=== PATIENT | male | born 1950 | race Caucasian/White ===

== ENCOUNTER 2018-01-30 17:12 | Inpatient (IN) | payer MEDICARE, OTHER ==
[~2018-01-30] VITALS: Ht 175.3 cm; Wt 106.3 kg
[2018-01-30] MEDS ORDERED: acetaminophen 1,000mg/100ml IV 100 ML IV ONE (17:30)
[2018-01-30] MEDS ORDERED: normal saline 1000ml 1,000 ML IV ONE ×3 (17:30→20:50)
[2018-01-30] MEDS ORDERED: acetaminophen 650mg rectal suppository RC ONE (17:40)
[2018-01-30] MEDS ORDERED: diltiazem 5mg/ml 5ml inj. IV ONE ×2 (17:50→18:00)
[2018-01-30 18:31] LABS: BASOPHILS % (AUTO) 0.1 % (0-1); EOSINOPHILS # (AUTO) 0.2 X10'3 (0-0.9); EOSINOPHILS % (AUTO) 1.8 % (0-6); HEMOGLOBIN 13.2 g/dl (14.0-17.9); LYMPHOCYTES # (AUTO) 0.4 X10'3 (1.1-4.8); LYMPHOCYTES % (AUTO) 3.8 % (21-51); MEAN CORPUSCULAR HEMOGLOBIN 33.8 PG (27.0-31.0); MEAN CORPUSCULAR HGB CONC 34.7 % (33.0-36.5); MEAN CORPUSCULAR VOLUME 97.4 FL (78-98); MEAN PLATELET VOLUME 9.2 FL (7.4-10.4); MONOCYTES # (AUTO) 1.2 X10'3 (0-0.9); MONOCYTES % (AUTO) 11.1 % (2-12); NEUTROPHILS % (AUTO) 83.2 % (42-75); PLATELET COUNT 178 X10'3 (140-440); RED CELL DISTRIBUTION WIDTH 14.9 % (11.5-14.5); WHITE BLOOD COUNT 10.9 X10'3 (4.5-11.0)
[2018-01-30 18:38] LABS: INR 1.7 INR; PARTIAL THROMBOPLASTIN TIME 54 SECONDS (22-32); PROTHROMBIN TIME 17.4 SECONDS (9.0-12.0)
[2018-01-30 18:45] LABS: ALANINE AMINOTRANSFERASE 25 U/L (12-78); ALBUMIN 2.8 G/DL (3.4-5.0); ALBUMIN/GLOBULIN RATIO 0.7 (1.1-1.5); ALKALINE PHOSPHATASE 53 IU/L (46-116); ANION GAP 12 (8-16); ASPARTATE AMINO TRANSFERASE 97 U/L (10-37); BLOOD UREA NITROGEN 9 MG/DL (7-18); BUN/CREATININE RATIO 7.1 (5.4-32.0); CALCIUM 8.5 MG/DL (8.5-10.1); CHLORIDE 95 MMOL/L (99-107); CREATININE 1.26 MG/DL (0.60-1.10); GLUCOSE 141 MG/DL (70-104); SODIUM 134 MMOL/L (135-145); TOTAL PROTEIN 6.7 G/DL (6.4-8.2); eGFR 57 ML/MIN
[2018-01-30 18:48] LABS: POTASSIUM 2.6 MMOL/L (3.5-5.1)
[2018-01-30] MEDS ORDERED: potassium Cl 20 mEq SR tablet PO STA (18:48)
[2018-01-30] MEDS ORDERED: potassium Cl 10 mEq/100mL bag IV ONE (18:50)
[2018-01-30] MEDS ORDERED: aspirin 325mg tablet PO ONE (18:55)
[2018-01-30] MEDS ORDERED: potassium 10mEq/100ml NS w/LIDOcaine (10mg/bag) IV ONE ×2 (19:00→21:45)
[2018-01-30] MEDS: diltiazem-NS 100mg/100ml 100 ML IV SCH (19:02)
[2018-01-30] MEDS: magnesium 1gm/100ml D5W IVPB 100 ML IV SCH ×2 (19:21→20:47)
[2018-01-30] MEDS ORDERED: CefTRIAXone 2gm/D5W 50ml 50 ML IV ONE (19:25)
[2018-01-30 19:26] LABS: CLARITY,URINE CLOUDY (Clear); COLOR,URINE YELLOW (Yellow); GLUCOSE, URINE NEGATIVE (Neg); KETONES,URINE NEGATIVE (Neg); LEUKOCYTE ESTERASE ,URINE TRACE (Neg); NITRITES, URINE NEGATIVE (Neg); OCCULT BLOOD,URINE LARGE (Neg); PROTEIN,URINE >=300 mg/dl (Neg)
[2018-01-30 19:34] LABS: UA COLLECTION TYPE NON-SPECIFIED
[2018-01-30 19:35] LABS: BACTERIA,URINE FEW /HPF (Neg); RBC,URINE 50-100 /HPF (0-2); SQUAMOUS EPITHELIAL CELL,UR FEW /LPF (FEW); WBC,URINE 0-4 /HPF (0-4)
[2018-01-30] MEDS ORDERED: acyclovir 1 GM inj IV SCH (20:40)
[2018-01-30] MEDS ORDERED: NORMAL SALINE IV ONE (20:50)
[2018-01-30] MEDS ORDERED: ACYCLOVIR IV ONE (20:50)
[2018-01-30 21:33] LABS: ALBUMIN 2.6 G/DL (3.4-5.0); ANION GAP 13 (8-16); BLOOD UREA NITROGEN 9 MG/DL (7-18); BUN/CREATININE RATIO 7.3 (5.4-32.0); CHLORIDE 97 MMOL/L (99-107); CREATININE 1.23 MG/DL (0.60-1.10); GLUCOSE 135 MG/DL (70-104); SODIUM 135 MMOL/L (135-145); TOTAL CARBON DIOXIDE 24.9 MMOL/L (24-32); eGFR 59 ML/MIN
[2018-01-30 21:37] LABS: POTASSIUM 2.8 MMOL/L (3.5-5.1)
[2018-01-30] MEDS ORDERED: potassium Cl 20 mEq SR tablet PO ONE (21:45)
[2018-01-30 21:52] LABS: GLUCOSE,CSF 82 MG/DL (40-75); TOTAL PROTEIN,CSF 47 MG/DL (30-60)
[2018-01-30 22:17] LABS: APPEARANCE,CSF CLEAR; CSF RBC 1 /CU MM (0); CSF SUPERNATANT COLOR COLORLESS; CSF VOLUME 4 ML; TUBE# COUNTED 1
[2018-01-30 22:21] LABS: CSF WBC CT 1 /CU MM (0-5)
[2018-01-30 22:22] LABS: APPEARANCE,CSF CLEAR; CSF SUPERNATANT COLOR COLORLESS; CSF VOLUME 4 ML; TUBE# COUNTED 4
[2018-01-30 22:23] LABS: CSF RBC 0 /CU MM (0); CSF WBC CT 1 /CU MM (0-5)
[2018-01-31] VITALS (15 sets, daily range): BP systolic 99–177; BP diastolic 67–128
[2018-01-31 00:20] LABS: ALANINE AMINOTRANSFERASE 25 U/L (12-78); ALBUMIN 2.5 G/DL (3.4-5.0); ALBUMIN/GLOBULIN RATIO 0.7 (1.1-1.5); ALKALINE PHOSPHATASE 42 IU/L (46-116); ANION GAP 12 (8-16); ASPARTATE AMINO TRANSFERASE 105 U/L (10-37); BILIRUBIN,TOTAL 0.5 MG/DL (0.1-1.0); BLOOD UREA NITROGEN 9 MG/DL (7-18); BUN/CREATININE RATIO 6.8 (5.4-32.0); CALCIUM 7.6 MG/DL (8.5-10.1); CHLORIDE 100 MMOL/L (99-107); CREATININE 1.32 MG/DL (0.60-1.10); GLUCOSE 121 MG/DL (70-104); SODIUM 137 MMOL/L (135-145); TOTAL PROTEIN 5.9 G/DL (6.4-8.2); eGFR 54 ML/MIN
[2018-01-31] MEDS ORDERED: magnesium 4gm in 100ml NS 100 ML IV PRN (01:10)
[2018-01-31] MEDS ORDERED: ipratropium/albuterol 3ml nebule NEB PRN ×2 (01:10→15:00)
[2018-01-31] MEDS ORDERED: acetaminophen 325mg tablet PO PRN (01:10)
[2018-01-31] MEDS ORDERED: ondansetron/PF 4mg/2ml inj IV PRN (01:10)
[2018-01-31] MEDS ORDERED: potassium Cl 20 mEq SR tablet PO PRN ×2 (01:10)
[2018-01-31] MEDS ORDERED: magnesium 1gm/100ml D5W IVPB 100 ML IV PRN (01:10)
[2018-01-31] MEDS ORDERED: mag hydrox/Alum hydrox/simeth 30ml oral suspension PO PRN (01:10)
[2018-01-31] MEDS ORDERED: magnesium hydroxide 30ml (MOM) UD suspension PO PRN (01:10)
[2018-01-31] MEDS ORDERED: thiamine inj. 100 MG in normal saline 100ml IV soln 100 ML IV ONE (01:10)
[2018-01-31] MEDS ORDERED: haloperidol lactate 5mg/ml inj IM PRN (01:10)
[2018-01-31] MEDS ORDERED: potassium Cl 40MEQ/NS 500ml 500 ML IV PRN (01:10)
[2018-01-31] MEDS: LORazepam 2 mg/ml vial IV PRN ×8 (01:53→23:13)
[2018-01-31] MEDS: normal saline 1000ml 1,000 ML IV SCH ×3 (02:50→21:08)
[2018-01-31] MEDS ORDERED: acetaminophen 650mg rectal suppository RC PRN (04:50)
[2018-01-31] MEDS: heparin, porcine 5000 units/ml vial SQ SCH ×2 (07:46→17:03)
[2018-01-31] MEDS: nicotine 21mg patch - 24 hr TD SCH (07:47)
[2018-01-31] MEDS: K and/or MAG REPLACEMENT MC SCH (08:00)
[2018-01-31] MEDS ORDERED: levoFLOXACIN-Levaquin 500mg/D5 100 ML IV SCH (08:00)
[2018-01-31] MEDS ORDERED: metroNIDAZOLE-Flagyl 500mg/NS 100 ML IV SCH (08:00)
[2018-01-31 08:30] LABS: BASOPHILS % (AUTO) 0 % (0-1); EOSINOPHILS # (AUTO) 0.1 X10'3 (0-0.9); EOSINOPHILS % (AUTO) 1.4 % (0-6); HEMATOCRIT 36.3 % (42.0-52.0); HEMOGLOBIN 12.6 g/dl (14.0-17.9); LYMPHOCYTES # (AUTO) 0.4 X10'3 (1.1-4.8); LYMPHOCYTES % (AUTO) 3.8 % (21-51); MEAN CORPUSCULAR HEMOGLOBIN 34.5 PG (27.0-31.0); MEAN CORPUSCULAR HGB CONC 34.8 % (33.0-36.5); MEAN CORPUSCULAR VOLUME 99.1 FL (78-98); MEAN PLATELET VOLUME 9.9 FL (7.4-10.4); MONOCYTES # (AUTO) 1.3 X10'3 (0-0.9); MONOCYTES % (AUTO) 13.2 % (2-12); NEUTROPHILS # (AUTO) 7.8 X10'3 (1.8-7.7); NEUTROPHILS % (AUTO) 81.6 % (42-75); PLATELET COUNT 162 X10'3 (140-440); RED BLOOD COUNT 3.66 X10'6 (4.70-6.10); RED CELL DISTRIBUTION WIDTH 14.3 % (11.5-14.5); WHITE BLOOD COUNT 9.6 X10'3 (4.5-11.0)
[2018-01-31 09:04] LABS: ALANINE AMINOTRANSFERASE 29 U/L (12-78); ALBUMIN 2.6 G/DL (3.4-5.0); ALBUMIN/GLOBULIN RATIO 0.7 (1.1-1.5); ALKALINE PHOSPHATASE 47 IU/L (46-116); ANION GAP 13 (8-16); ASPARTATE AMINO TRANSFERASE 126 U/L (10-37); BILIRUBIN,TOTAL 0.6 MG/DL (0.1-1.0); BLOOD UREA NITROGEN 12 MG/DL (7-18); BUN/CREATININE RATIO 8.8 (5.4-32.0); CHLORIDE 101 MMOL/L (99-107); CREATININE 1.37 MG/DL (0.60-1.10); GLUCOSE 124 MG/DL (70-104); POTASSIUM 3.2 MMOL/L (3.5-5.1); SODIUM 136 MMOL/L (135-145); TOTAL PROTEIN 6.4 G/DL (6.4-8.2); eGFR 52 ML/MIN
[2018-01-31] MEDS: diltiazem-NS 100mg/100ml 100 ML IV SCH ×4 (09:38→17:17)
[2018-01-31] MEDS: folic acid inj. 2 MG, thiamine inj. 100 MG, MVI, adult No.4 with vit. K 10 ML in dextro... IV SCH ×4 (11:06)
[2018-01-31 12:26] LABS: URINE AMPHETAMINE SCREEN NEGATIVE (Neg); URINE BARBITUATE SCREEN NEGATIVE (Neg); URINE BENZODIAZEPINES SCREEN NEGATIVE (Neg); URINE CANNABINOID SCREEN NEGATIVE (Neg); URINE COCAINE SCREEN NEGATIVE (Neg); URINE METHADONE SCREEN NEGATIVE (Neg); URINE OPIATE SCREEN NEGATIVE (Neg); URINE PHENCYCLIDINE SCREEN NEGATIVE (Neg)
[2018-01-31] MEDS: potassium Cl 40MEQ/NS 500ml 500 ML IV PRN ×2 (14:41→20:36)
[2018-01-31] MEDS: piperacillin/tazo 3.375gm/50ml 50 ML IV SCH (16:14)
[2018-01-31 16:25] LABS: ABG BASE EXCESS -1.6 mmol/L (-2.0-3.0); ABG OXYGEN SATURATION 93.9 % (95-98); ABG PCO2 (T) 27.1 mmHg (35.0-48.0); ABG PH (T) 7.491 (7.350-7.450); ABG PO2 (T) 73.8 mmHg (83-108); ALLEN'S TEST Positive; FCOHb 0.3 % (0.5-1.5); FLOW 28 L/min; FMetHb 0.3 % (0.3-1.12); FO2Hb 93.3 % (94-100); TOTAL HEMOGLOBIN 13.4 G/dl (14.0-18.0)
[2018-01-31] MEDS ORDERED: methylPREDNISolone sod succ 125mg/2ml vial IV ONE (16:40)
[2018-01-31] MEDS ORDERED: iohexol 350MG/ML 100ml bottle IV ONE (16:44)
[2018-01-31] MEDS: vancomycin inj 1,250 MG in normal saline 250ml IV soln 250 ML IV SCH (17:02)
[2018-01-31] MEDS ORDERED: amiodarone 150mg/dext, iso-os 100 ML IV ONE (17:45)
[2018-01-31] MEDS: ipratropium/albuterol 3ml nebule NEB SCH ×2 (19:09→22:40)
[2018-01-31] MEDS ORDERED: dextrose 50%-water 50ml dispensing syringe IV PRN (19:30)
[2018-01-31] MEDS ORDERED: metoprolol tartrate 1mg/ml inj IV ONE (19:30)
[2018-01-31] MEDS: amiodarone/D5 360MG/200ML BAG 200 ML IV SCH (19:31)
[2018-01-31] MEDS: methylPREDNISolone sod succ 125mg/2ml vial IV SCH (20:26)
[2018-02-01] VITALS (18 sets, daily range): BP systolic 87–125; BP diastolic 59–82
[2018-02-01] MEDS: amiodarone/D5 360MG/200ML BAG 200 ML IV SCH ×5 (00:37→20:05)
[2018-02-01] MEDS: heparin, porcine 5000 units/ml vial SQ SCH ×4 (00:40→23:38)
[2018-02-01] MEDS: diltiazem-NS 100mg/100ml 100 ML IV SCH ×2 (00:44→21:54)
[2018-02-01] MEDS: piperacillin/tazo 3.375gm/50ml 50 ML IV SCH ×4 (02:41→23:36)
[2018-02-01] MEDS: methylPREDNISolone sod succ 125mg/2ml vial IV SCH ×4 (02:48→20:04)
[2018-02-01] MEDS: vancomycin inj 1,250 MG in normal saline 250ml IV soln 250 ML IV SCH ×2 (04:36→17:24)
[2018-02-01] MEDS: ipratropium/albuterol 3ml nebule NEB SCH ×5 (06:58→22:53)
[2018-02-01] MEDS: normal saline 1000ml 1,000 ML IV SCH ×2 (07:08→17:08)
[2018-02-01 07:15] LABS: INR 1.1 INR; PROTHROMBIN TIME 10.9 SECONDS (9.0-12.0)
[2018-02-01 07:16] LABS: BASOPHILS % (AUTO) 0.1 % (0-1); EOSINOPHILS % (AUTO) 0.1 % (0-6); HEMATOCRIT 34.6 % (42.0-52.0); HEMOGLOBIN 11.9 g/dl (14.0-17.9); LYMPHOCYTES # (AUTO) 0.4 X10'3 (1.1-4.8); LYMPHOCYTES % (AUTO) 5.5 % (21-51); MEAN CORPUSCULAR HEMOGLOBIN 34.2 PG (27.0-31.0); MEAN CORPUSCULAR HGB CONC 34.3 % (33.0-36.5); MEAN CORPUSCULAR VOLUME 99.9 FL (78-98); MEAN PLATELET VOLUME 9.8 FL (7.4-10.4); MONOCYTES # (AUTO) 0.2 X10'3 (0-0.9); MONOCYTES % (AUTO) 2.6 % (2-12); NEUTROPHILS % (AUTO) 91.7 % (42-75); PLATELET COUNT 162 X10'3 (140-440); RED BLOOD COUNT 3.47 X10'6 (4.70-6.10); RED CELL DISTRIBUTION WIDTH 13.8 % (11.5-14.5); WHITE BLOOD COUNT 7.6 X10'3 (4.5-11.0)
[2018-02-01] MEDS: nicotine 21mg patch - 24 hr TD SCH (07:19)
[2018-02-01] MEDS: LORazepam 2 mg/ml vial IV PRN ×4 (07:26→23:33)
[2018-02-01 07:28] LABS: ALANINE AMINOTRANSFERASE 33 U/L (12-78); ALBUMIN 2.3 G/DL (3.4-5.0); ALBUMIN/GLOBULIN RATIO 0.6 (1.1-1.5); ALKALINE PHOSPHATASE 37 IU/L (46-116); AMYLASE 15 U/L (25-115); ANION GAP 10 (8-16); ASPARTATE AMINO TRANSFERASE 95 U/L (10-37); BILIRUBIN,TOTAL 0.4 MG/DL (0.1-1.0); BLOOD UREA NITROGEN 17 MG/DL (7-18); BUN/CREATININE RATIO 12.8 (5.4-32.0); CALCIUM 7.9 MG/DL (8.5-10.1); CHLORIDE 107 MMOL/L (99-107); CHOL/HDL RATIO 4.6 (0.00-4.99); CHOLESTEROL 132 MG/DL (0-200); CREATININE 1.33 MG/DL (0.60-1.10); GLUCOSE 152 MG/DL (70-104); HDL CHOLESTEROL 29 MG/DL (35-60); LDL CHOLESTEROL 81 MG/DL (50-100); LIPASE 60 U/L (73-393); MAGNESIUM 2.1 MG/DL (1.5-2.4); PHOSPHORUS 2.9 MG/DL (2.3-4.5); POTASSIUM 3.6 MMOL/L (3.5-5.1); SODIUM 140 MMOL/L (135-145); TOTAL CARBON DIOXIDE 23.2 MMOL/L (24-32); TRIGLYCERIDES 100 MG/DL (20-135); eGFR 54 ML/MIN
[2018-02-01] MEDS: K and/or MAG REPLACEMENT MC SCH (08:00)
[2018-02-01] MEDS: folic acid inj. 2 MG, thiamine inj. 100 MG, MVI, adult No.4 with vit. K 10 ML in dextro... IV SCH ×4 (08:43)
[2018-02-01] MEDS ORDERED: BUDE10.2 INH (12:12)
[2018-02-01] MEDS ORDERED: ATRIN INH (12:12)
[2018-02-01] MEDS ORDERED: RIVA20TA PO (12:12)
[2018-02-01] MEDS ORDERED: AMLO2.5T2 PO (12:12)
[2018-02-01] MEDS ORDERED: HYDR-565 PO (12:12)
[2018-02-01] MEDS ORDERED: CYAN-19 PO (12:12)
[2018-02-01] MEDS ORDERED: LOSA50TA3 PO (12:12)
[2018-02-01] MEDS ORDERED: METF500T7 PO (12:12)
[2018-02-01] MEDS ORDERED: HYDR12.5 PO (12:12)
[2018-02-01] MEDS ORDERED: METO100T7 PO (12:12)
[2018-02-01] MEDS ORDERED: GABA-532 PO (12:12)
[2018-02-01] MEDS ORDERED: ATOR20TA PO (12:12)
[2018-02-01] MEDS ORDERED: ALBU18HF2 INH (12:12)
[2018-02-01] MEDS ORDERED: POTA10CA44 PO (12:12)
[2018-02-01] MEDS ORDERED: PANT-47 PO (12:12)
[2018-02-01] MEDS ORDERED: DOCU100C41 PO (12:19)
[2018-02-01 14:28] LABS: HEMOGLOBIN A1C 6.5 % (4.5-6.2)
[2018-02-02] VITALS (15 sets, daily range): BP systolic 105–158; BP diastolic 53–110
[2018-02-02] MEDS: methylPREDNISolone sod succ 125mg/2ml vial IV SCH ×4 (02:47→20:27)
[2018-02-02] MEDS ORDERED: VANCOMYCIN LEVEL IV ONE (03:30)
[2018-02-02 03:59] LABS: BASOPHILS % (AUTO) 0.2 % (0-1); EOSINOPHILS % (AUTO) 0 % (0-6); HEMATOCRIT 35.8 % (42.0-52.0); HEMOGLOBIN 11.9 g/dl (14.0-17.9); LYMPHOCYTES # (AUTO) 0.4 X10'3 (1.1-4.8); LYMPHOCYTES % (AUTO) 3.1 % (21-51); MEAN CORPUSCULAR HEMOGLOBIN 33.3 PG (27.0-31.0); MEAN CORPUSCULAR HGB CONC 33.1 % (33.0-36.5); MEAN CORPUSCULAR VOLUME 100.5 FL (78-98); MEAN PLATELET VOLUME 9.5 FL (7.4-10.4); MONOCYTES # (AUTO) 0.3 X10'3 (0-0.9); MONOCYTES % (AUTO) 2.1 % (2-12); NEUTROPHILS # (AUTO) 12.3 X10'3 (1.8-7.7); NEUTROPHILS % (AUTO) 94.6 % (42-75); PLATELET COUNT 183 X10'3 (140-440); RED BLOOD COUNT 3.56 X10'6 (4.70-6.10); RED CELL DISTRIBUTION WIDTH 15.1 % (11.5-14.5)
[2018-02-02 04:14] LABS: PROTHROMBIN TIME 10.8 SECONDS (9.0-12.0)
[2018-02-02 04:26] LABS: ALANINE AMINOTRANSFERASE 40 U/L (12-78); ALBUMIN 2.3 G/DL (3.4-5.0); ALBUMIN/GLOBULIN RATIO 0.6 (1.1-1.5); ALKALINE PHOSPHATASE 39 IU/L (46-116); AMYLASE 26 U/L (25-115); ANION GAP 11 (8-16); ASPARTATE AMINO TRANSFERASE 102 U/L (10-37); BILIRUBIN,TOTAL 0.4 MG/DL (0.1-1.0); BLOOD UREA NITROGEN 18 MG/DL (7-18); BUN/CREATININE RATIO 17.5 (5.4-32.0); CALCIUM 7.9 MG/DL (8.5-10.1); CHLORIDE 109 MMOL/L (99-107); CREATININE 1.03 MG/DL (0.60-1.10); GLUCOSE 165 MG/DL (70-104); LIPASE 83 U/L (73-393); MAGNESIUM 2.1 MG/DL (1.5-2.4); PHOSPHORUS 2.7 MG/DL (2.3-4.5); POTASSIUM 3.1 MMOL/L (3.5-5.1); SODIUM 143 MMOL/L (135-145); TOTAL CARBON DIOXIDE 23.2 MMOL/L (24-32); VANCOMYCIN,TROUGH 16.8 UG/ML (6.0-14.0); eGFR 72 ML/MIN
[2018-02-02] MEDS: vancomycin inj 1,250 MG in normal saline 250ml IV soln 250 ML IV SCH ×2 (04:31→14:54)
[2018-02-02] MEDS: ipratropium/albuterol 3ml nebule NEB SCH ×5 (07:27→22:59)
[2018-02-02] MEDS: K and/or MAG REPLACEMENT MC SCH (08:00)
[2018-02-02] MEDS: nicotine 21mg patch - 24 hr TD SCH (08:26)
[2018-02-02] MEDS: folic acid inj. 2 MG, thiamine inj. 100 MG, MVI, adult No.4 with vit. K 10 ML in dextro... IV SCH ×4 (08:26)
[2018-02-02] MEDS: piperacillin/tazo 3.375gm/50ml 50 ML IV SCH ×2 (08:26→14:56)
[2018-02-02] MEDS: heparin, porcine 5000 units/ml vial SQ SCH ×2 (08:27→14:54)
[2018-02-02] MEDS: diltiazem-NS 100mg/100ml 100 ML IV SCH (08:27)
[2018-02-02] MEDS: LORazepam 2 mg/ml vial IV PRN ×3 (08:27→20:28)
[2018-02-02] MEDS: amiodarone/D5 360MG/200ML BAG 200 ML IV SCH ×3 (08:28→20:30)
[2018-02-02 10:26] LABS: ABG BASE EXCESS -2.1 mmol/L (-2.0-3.0); ABG HCO3 21.4 mmol/L (22.0-26.0); ABG OXYGEN SATURATION 91.3 % (95-98); ABG PCO2 (T) 33.2 mmHg (35.0-48.0); ABG PH (T) 7.428 (7.350-7.450); ABG PO2 (T) 61.7 mmHg (83-108); FCOHb 0.3 % (0.5-1.5); FLOW 3 L/min; FMetHb 0.2 % (0.3-1.12); FO2Hb 90.8 % (94-100); TOTAL HEMOGLOBIN 13.3 G/dl (14.0-18.0)
[2018-02-02] MEDS: lactobacillus rhamnosus 10,000 MMU CELLS/CAPSULE PO SCH (19:10)
[2018-02-02] MEDS: potassium Cl 40MEQ/NS 500ml 500 ML IV PRN (20:28)
[2018-02-03] VITALS (24 sets, daily range): BP systolic 84–242; BP diastolic 58–184
[2018-02-03] MEDS: amiodarone/D5 360MG/200ML BAG 200 ML IV SCH ×4 (00:21→20:36)
[2018-02-03] MEDS: LORazepam 2 mg/ml vial IV PRN ×2 (00:56→02:47)
[2018-02-03] MEDS: piperacillin/tazo 3.375gm/50ml 50 ML IV SCH ×3 (00:56→17:48)
[2018-02-03] MEDS: methylPREDNISolone sod succ 125mg/2ml vial IV SCH ×4 (02:47→20:38)
[2018-02-03] MEDS ORDERED: LORazepam 2 mg/ml vial IV ONE (03:15)
[2018-02-03] MEDS ORDERED: diltiazem 5mg/ml 5ml inj. IV ONE (03:15)
[2018-02-03 03:21] LABS: ABG BASE EXCESS -2.2 mmol/L (-2.0-3.0); ABG HCO3 20.9 mmol/L (22.0-26.0); ABG OXYGEN SATURATION 95.2 % (95-98); ABG PCO2 (T) 31.7 mmHg (35.0-48.0); ABG PH (T) 7.439 (7.350-7.450); ABG PO2 (T) 78.1 mmHg (83-108); ALLEN'S TEST Positive; FCOHb 0.3 % (0.5-1.5); FLOW 3 L/min; FMetHb 0.3 % (0.3-1.12); FO2Hb 94.6 % (94-100); PATIENT TEMPERATURE 37.3; TOTAL HEMOGLOBIN 13.4 G/dl (14.0-18.0)
[2018-02-03] MEDS: vancomycin inj 1,250 MG in normal saline 250ml IV soln 250 ML IV SCH (04:26)
[2018-02-03 06:35] LABS: INR 1.1 INR
[2018-02-03 06:43] LABS: AMYLASE 19 U/L (25-115); LIPASE 71 U/L (73-393); MAGNESIUM 1.9 MG/DL (1.5-2.4); PHOSPHORUS 1.9 MG/DL (2.3-4.5)
[2018-02-03 07:06] LABS: ANION GAP 9 (8-16); BLOOD UREA NITROGEN 22 MG/DL (7-18); CHLORIDE 114 MMOL/L (99-107); CREATININE 1.11 MG/DL (0.60-1.10); GLUCOSE 182 MG/DL (70-104); POTASSIUM 3.5 MMOL/L (3.5-5.1); SODIUM 146 MMOL/L (135-145); TOTAL CARBON DIOXIDE 23.2 MMOL/L (24-32)
[2018-02-03 07:07] LABS: ALBUMIN 2.3 G/DL (3.4-5.0); BUN/CREATININE RATIO 19.8 (5.4-32.0); eGFR 66 ML/MIN
[2018-02-03] MEDS: ipratropium/albuterol 3ml nebule NEB SCH ×5 (07:29→23:43)
[2018-02-03] MEDS: heparin, porcine 5000 units/ml vial SQ SCH ×3 (07:46→20:39)
[2018-02-03] MEDS: nicotine 21mg patch - 24 hr TD SCH (07:48)
[2018-02-03] MEDS: folic acid inj. 2 MG, thiamine inj. 100 MG, MVI, adult No.4 with vit. K 10 ML in dextro... IV SCH ×4 (07:55)
[2018-02-03] MEDS: lactobacillus rhamnosus 10,000 MMU CELLS/CAPSULE PO SCH ×2 (08:00→20:38)
[2018-02-03 11:40] LABS: ABG BASE EXCESS -1.1 mmol/L (-2.0-3.0); ABG HCO3 21.3 mmol/L (22.0-26.0); ABG OXYGEN SATURATION 93.9 % (95-98); ABG PCO2 (T) 29.2 mmHg (35.0-48.0); ABG PO2 (T) 66.8 mmHg (83-108); ALLEN'S TEST Positive; FCOHb 0.3 % (0.5-1.5); FMetHb 0.2 % (0.3-1.12); FO2Hb 93.4 % (94-100); MINUTE VOLUME 35 L/min; RESPIRATORY RATE 12 b/min; RESPIRATORY RATE (OBSERVED) 45 b/min; TOTAL HEMOGLOBIN 13.3 G/dl (14.0-18.0)
[2018-02-03] MEDS: metoprolol tartrate 1mg/ml inj IV PRN (11:50)
[2018-02-03 12:08] LABS: ALANINE AMINOTRANSFERASE 61 U/L (12-78); ALBUMIN 2.7 G/DL (3.4-5.0); ALBUMIN/GLOBULIN RATIO 0.7 (1.1-1.5); ALKALINE PHOSPHATASE 48 IU/L (46-116); ANION GAP 12 (8-16); ASPARTATE AMINO TRANSFERASE 85 U/L (10-37); BILIRUBIN,TOTAL 0.6 MG/DL (0.1-1.0); BLOOD UREA NITROGEN 25 MG/DL (7-18); BUN/CREATININE RATIO 21.6 (5.4-32.0); CALCIUM 8.6 MG/DL (8.5-10.1); CHLORIDE 113 MMOL/L (99-107); CREATININE 1.16 MG/DL (0.60-1.10); GLUCOSE 180 MG/DL (70-104); POTASSIUM 3.6 MMOL/L (3.5-5.1); SODIUM 149 MMOL/L (135-145); TOTAL CARBON DIOXIDE 24.1 MMOL/L (24-32); TOTAL PROTEIN 6.4 G/DL (6.4-8.2); eGFR 63 ML/MIN
[2018-02-03] MEDS ORDERED: midazolam 2 mg/2 ml injection ONE (13:06)
[2018-02-03] MEDS ORDERED: midazolam 100mg in NS 100ml 100 ML IV PRN ×2 (13:25→22:00)
[2018-02-03] MEDS ORDERED: labetalol 20mg/4ml (5mg/ml) syringe IV ONE (13:35)
[2018-02-03] MEDS: FENTANYL-0.9 % NACL/PF 100 ML IV PRN (13:36)
[2018-02-03] MEDS ORDERED: potassium Cl 20 mEq SR tablet PO PRN ×2 (13:45)
[2018-02-03] MEDS ORDERED: morphine 4 MG/ML inj SYRINge IV PRN ×2 (13:45)
[2018-02-03] MEDS ORDERED: sodium phosphate inj. 15 MMOL in dextrose 5%-water 150 ML IV PRN (13:45)
[2018-02-03] MEDS ORDERED: magnesium 4gm in 100ml NS 100 ML IV PRN (13:45)
[2018-02-03] MEDS ORDERED: acetaminophen 325mg tablet PO PRN ×2 (13:45)
[2018-02-03] MEDS ORDERED: magnesium Cl slow-release 64mg tablet PO PRN (13:45)
[2018-02-03] MEDS ORDERED: sodium phosphate inj. 30 MMOL in dextrose 5%-water 250 ML IV PRN (13:45)
[2018-02-03] MEDS ORDERED: bisacodyl 10mg suppository rectal RC PRN (13:45)
[2018-02-03] MEDS ORDERED: magnesium 1gm/100ml D5W IVPB 100 ML IV PRN (13:45)
[2018-02-03] MEDS ORDERED: magnesium hydroxide 30ml (MOM) UD suspension PO PRN (13:45)
[2018-02-03] MEDS ORDERED: Neutra Phos packet PO PRN (13:45)
[2018-02-03] MEDS ORDERED: ondansetron/PF 4mg/2ml inj IV PRN (13:45)
[2018-02-03] MEDS ORDERED: etomidate 2mg/ml inj. ONE (14:00)
[2018-02-03] MEDS ORDERED: rocuronium 10mg/ml inj IV ONE ×2 (14:00→14:20)
[2018-02-03] MEDS: K, MAG and/or Phos replacement - Verify level? MC SCH (16:00)
[2018-02-03 16:06] LABS: ABG HCO3 21.6 mmol/L (22.0-26.0); ABG OXYGEN SATURATION 99.4 % (95-98); ABG PCO2 (T) 51.1 mmHg (35.0-48.0); ABG PH (T) 7.244 (7.350-7.450); ABG PO2 (T) 348.8 mmHg (83-108); FCOHb 0.3 % (0.5-1.5); FMetHb 0.4 % (0.3-1.12); FO2Hb 98.7 % (94-100); MINUTE VOLUME 16 L/min; PATIENT TEMPERATURE 37.1; PEEP 5 cm H2O; RESPIRATORY RATE 16 b/min; RESPIRATORY RATE (OBSERVED) 15 b/min
[2018-02-03 17:48] LABS: HSV 1 PCR Negative (Negative); HSV 2 PCR Negative (Negative)
[2018-02-03] MEDS: furosemide 10 MG/1 ML 10ml inj IV SCH (20:37)
[2018-02-03] MEDS: famotidine/PF 10 mg/ml inj IV SCH (20:38)
[2018-02-04] VITALS (23 sets, daily range): BP systolic 108–158; BP diastolic 66–84
[2018-02-04] MEDS: piperacillin/tazo 3.375gm/50ml 50 ML IV SCH ×3 (00:22→16:37)
[2018-02-04] MEDS: amiodarone/D5 360MG/200ML BAG 200 ML IV SCH ×3 (00:37→16:40)
[2018-02-04 02:57] LABS: INR 1.1 INR; PROTHROMBIN TIME 11.8 SECONDS (9.0-12.0)
[2018-02-04 03:12] LABS: AMYLASE 40 U/L (25-115); LIPASE 110 U/L (73-393); MAGNESIUM 1.9 MG/DL (1.5-2.4); PHOSPHORUS 2.8 MG/DL (2.3-4.5); POTASSIUM 3.5 MMOL/L (3.5-5.1)
[2018-02-04 03:51] LABS: ALANINE AMINOTRANSFERASE 66 U/L (12-78); ALBUMIN 2.4 G/DL (3.4-5.0); ALBUMIN/GLOBULIN RATIO 0.7 (1.1-1.5); ALKALINE PHOSPHATASE 43 IU/L (46-116); ANION GAP 10 (8-16); ASPARTATE AMINO TRANSFERASE 62 U/L (10-37); BILIRUBIN,TOTAL 0.5 MG/DL (0.1-1.0); BLOOD UREA NITROGEN 35 MG/DL (7-18); BUN/CREATININE RATIO 20.2 (5.4-32.0); CALCIUM 8.3 MG/DL (8.5-10.1); CHLORIDE 114 MMOL/L (99-107); CREATININE 1.73 MG/DL (0.60-1.10); GLUCOSE 192 MG/DL (70-104); SODIUM 150 MMOL/L (135-145); TOTAL CARBON DIOXIDE 26.3 MMOL/L (24-32); TOTAL PROTEIN 5.7 G/DL (6.4-8.2); eGFR 40 ML/MIN
[2018-02-04 03:56] LABS: ABG BASE EXCESS -2.7 mmol/L (-2.0-3.0); ABG HCO3 19.5 mmol/L (22.0-26.0); ABG OXYGEN SATURATION 98.3 % (95-98); ABG PO2 (T) 139.7 mmHg (83-108); FCOHb 0.3 % (0.5-1.5); FMetHb 0.2 % (0.3-1.12); FO2Hb 97.8 % (94-100); MINUTE VOLUME 11 L/min; PATIENT TEMPERATURE 36.5; PEEP 5 cm H2O; RESPIRATORY RATE 20 b/min; RESPIRATORY RATE (OBSERVED) 20 b/min; TOTAL HEMOGLOBIN 12.4 G/dl (14.0-18.0)
[2018-02-04 04:05] LABS: BASOPHILS % (AUTO) 0 % (0-1); EOSINOPHILS % (AUTO) 0 % (0-6); HEMATOCRIT 33.5 % (42.0-52.0); HEMOGLOBIN 11.2 g/dl (14.0-17.9); LYMPHOCYTES # (AUTO) 0.3 X10'3 (1.1-4.8); LYMPHOCYTES % (AUTO) 3.5 % (21-51); MEAN CORPUSCULAR HEMOGLOBIN 33.6 PG (27.0-31.0); MEAN CORPUSCULAR HGB CONC 33.5 % (33.0-36.5); MEAN CORPUSCULAR VOLUME 100.5 FL (78-98); MEAN PLATELET VOLUME 9.7 FL (7.4-10.4); MONOCYTES # (AUTO) 0.3 X10'3 (0-0.9); MONOCYTES % (AUTO) 3.7 % (2-12); NEUTROPHILS # (AUTO) 7.1 X10'3 (1.8-7.7); NEUTROPHILS % (AUTO) 92.8 % (42-75); PLATELET COUNT 138 X10'3 (140-440); RED BLOOD COUNT 3.33 X10'6 (4.70-6.10); RED CELL DISTRIBUTION WIDTH 14.8 % (11.5-14.5); WHITE BLOOD COUNT 7.7 X10'3 (4.5-11.0)
[2018-02-04] MEDS: ipratropium/albuterol 3ml nebule NEB SCH ×5 (07:25→23:33)
[2018-02-04] MEDS: K, MAG and/or Phos replacement - Verify level? MC SCH (08:00)
[2018-02-04] MEDS: lactobacillus rhamnosus 10,000 MMU CELLS/CAPSULE PO SCH ×2 (08:00→21:00)
[2018-02-04] MEDS: methylPREDNISolone sod succ 125mg/2ml vial IV SCH ×2 (08:36→20:44)
[2018-02-04] MEDS: nicotine 21mg patch - 24 hr TD SCH (08:36)
[2018-02-04] MEDS: furosemide 10 MG/1 ML 10ml inj IV SCH ×2 (08:37→20:54)
[2018-02-04] MEDS: famotidine/PF 10 mg/ml inj IV SCH ×2 (08:37→20:52)
[2018-02-04] MEDS: heparin, porcine 5000 units/ml vial SQ SCH (08:42)
[2018-02-04 09:23] LABS: CSF WEST NILE VIRUS, IGG Negative (Negative)
[2018-02-04] MEDS: FENTANYL-0.9 % NACL/PF 100 ML IV PRN ×2 (10:08→21:34)
[2018-02-04] MEDS ORDERED: magnesium 1gm/100ml D5W IVPB 100 ML IV PRN (10:45)
[2018-02-04] MEDS ORDERED: magnesium 4gm in 100ml NS 100 ML IV PRN (10:45)
[2018-02-04] MEDS: folic acid inj. 2 MG, thiamine inj. 100 MG, MVI, adult No.4 with vit. K 10 ML in dextro... IV SCH ×4 (11:19)
[2018-02-04 11:27] LABS: CSF WEST NILE VIRUS, IGM Negative (Negative)
[2018-02-04] MEDS ORDERED: midazolam 100mg in NS 100ml 100 ML IV PRN (13:25)
[2018-02-04] MEDS ORDERED: glucagon, human recombinant 1mg kit SUBCUT PRN (15:40)
[2018-02-04] MEDS ORDERED: dextrose ORAL solution 15 GM/59 ML bottle PO PRN (15:40)
[2018-02-04] MEDS ORDERED: dextrose 50%-water 50ml dispensing syringe IV PRN ×2 (15:40)
[2018-02-04] MEDS ORDERED: MESSAGE TO PHARMACY PO ONE (15:40)
[2018-02-04] MEDS: enoxaparin 80mg/0.8ml syringe SUBCUT SCH (20:58)
[2018-02-04] MEDS: insulin glargine (Lantus) pen - multi-dose SQ SCH (21:00)
[2018-02-05] VITALS (20 sets, daily range): BP systolic 124–200; BP diastolic 70–106
[2018-02-05] MEDS: piperacillin/tazo 3.375gm/50ml 50 ML IV SCH ×3 (01:09→15:19)
[2018-02-05 03:24] LABS: BASOPHILS % (AUTO) 0 % (0-1); EOSINOPHILS % (AUTO) 0 % (0-6); HEMOGLOBIN 11.6 g/dl (14.0-17.9); LYMPHOCYTES # (AUTO) 0.3 X10'3 (1.1-4.8); LYMPHOCYTES % (AUTO) 2.6 % (21-51); MEAN CORPUSCULAR HEMOGLOBIN 33.8 PG (27.0-31.0); MEAN CORPUSCULAR HGB CONC 34.2 % (33.0-36.5); MEAN CORPUSCULAR VOLUME 98.8 FL (78-98); MEAN PLATELET VOLUME 9.7 FL (7.4-10.4); MONOCYTES # (AUTO) 0.3 X10'3 (0-0.9); NEUTROPHILS # (AUTO) 10.4 X10'3 (1.8-7.7); NEUTROPHILS % (AUTO) 94.4 % (42-75); PLATELET COUNT 123 X10'3 (140-440); RED BLOOD COUNT 3.44 X10'6 (4.70-6.10); WHITE BLOOD COUNT 11.1 X10'3 (4.5-11.0)
[2018-02-05 03:32] LABS: INR 1.2 INR; PROTHROMBIN TIME 12.4 SECONDS (9.0-12.0)
[2018-02-05 03:36] LABS: AMYLASE 25 U/L (25-115); LIPASE 101 U/L (73-393); MAGNESIUM 1.6 MG/DL (1.5-2.4); PHOSPHORUS 3.6 MG/DL (2.3-4.5); POTASSIUM 3.2 MMOL/L (3.5-5.1); PREALBUMIN 22.7 MG/DL (19-36)
[2018-02-05] MEDS: insulin regular, human vial - multi-dose SQ SCH ×3 (04:16→20:44)
[2018-02-05] MEDS: amiodarone/D5 360MG/200ML BAG 200 ML IV SCH ×5 (04:20→19:05)
[2018-02-05] MEDS: ipratropium/albuterol 3ml nebule NEB SCH ×4 (07:04→23:00)
[2018-02-05] MEDS ORDERED: potassium Cl oral solution 20 MEQ/15 ML PO PRN (07:24)
[2018-02-05] MEDS: potassium Cl oral solution 20 MEQ/15 ML PO PRN ×2 (07:35→13:14)
[2018-02-05 07:45] LABS: ALBUMIN 2.6 G/DL (3.4-5.0); ANION GAP 13 (8-16); BLOOD UREA NITROGEN 37 MG/DL (7-18); BUN/CREATININE RATIO 20.3 (5.4-32.0); CALCIUM 7.9 MG/DL (8.5-10.1); CHLORIDE 112 MMOL/L (99-107); CREATININE 1.82 MG/DL (0.60-1.10); GLUCOSE 229 MG/DL (70-104); SODIUM 152 MMOL/L (135-145); TOTAL CARBON DIOXIDE 26.7 MMOL/L (24-32); eGFR 37 ML/MIN
[2018-02-05] MEDS: pantoprazole 40mg Tablet.DR PO SCH (08:00)
[2018-02-05] MEDS: K, MAG and/or Phos replacement - Verify level? MC SCH (08:00)
[2018-02-05] MEDS: lactobacillus rhamnosus 10,000 MMU CELLS/CAPSULE PO SCH ×2 (09:18→20:10)
[2018-02-05] MEDS: methylPREDNISolone sod succ 125mg/2ml vial IV SCH ×2 (09:18→20:10)
[2018-02-05] MEDS: famotidine/PF 10 mg/ml inj IV SCH ×2 (09:18→20:10)
[2018-02-05] MEDS: nicotine 21mg patch - 24 hr TD SCH (09:18)
[2018-02-05] MEDS: metoprolol tartrate 1mg/ml inj IV PRN ×2 (09:30→15:16)
[2018-02-05] MEDS ORDERED: albumin (human) 25% 100 ML IV solution IV ONE (10:50)
[2018-02-05] MEDS: enoxaparin 80mg/0.8ml syringe SUBCUT SCH ×2 (10:57→20:09)
[2018-02-05] MEDS: folic acid inj. 2 MG, thiamine inj. 100 MG, MVI, adult No.4 with vit. K 10 ML in dextro... IV SCH ×4 (10:57)
[2018-02-05] MEDS: sodium chloride 0.45% 1,000 ML IV SCH (10:58)
[2018-02-05 15:24] LABS: ALBUMIN 3.1 G/DL (3.4-5.0); ANION GAP 9 (8-16); BLOOD UREA NITROGEN 37 MG/DL (7-18); CALCIUM 7.7 MG/DL (8.5-10.1); CHLORIDE 110 MMOL/L (99-107); CREATININE 1.61 MG/DL (0.60-1.10); GLUCOSE 282 MG/DL (70-104); MAGNESIUM 1.7 MG/DL (1.5-2.4); POTASSIUM 3.6 MMOL/L (3.5-5.1); SODIUM 149 MMOL/L (135-145); TOTAL CARBON DIOXIDE 29.7 MMOL/L (24-32); eGFR 43 ML/MIN
[2018-02-05] MEDS ORDERED: non-formulary drug (Albuterol Sulfate (Ventolin Hfa) 2 PUFFS) INH SCH (16:30)
[2018-02-05] MEDS ORDERED: HYDROcodone/acetaminophen 10/325mg tab PO PRN (16:30)
[2018-02-05] MEDS ORDERED: ipratropium/albuterol 3ml nebule NEB PRN (16:45)
[2018-02-05] MEDS ORDERED: non-formulary drug (Ipratropium Bromide MDI* (Atrovent MDI*) 2 PUFFS) INH SCH (20:00)
[2018-02-05] MEDS: docusate sod 100mg capsule PO SCH (20:00)
[2018-02-05] MEDS ORDERED: non-formulary drug (Budesonide/Formoterol Fumarate (Symbicort 160-4.5 Mcg Inhaler) 2 PUFFS INH SCH (20:00)
[2018-02-05] MEDS: albuterol 2.5 MG/3 ML nebule NEB SCH (20:05)
[2018-02-05] MEDS: budesonide 0.5mg/2ml UD nebule IH SCH (20:06)
[2018-02-05] MEDS: gabapentin 300mg capsule PO SCH (20:08)
[2018-02-05] MEDS: HYDROchlorothiazide 12.5mg capsule PO SCH (20:08)
[2018-02-05] MEDS: amLODIPine 2.5mg tablet PO SCH (20:09)
[2018-02-05] MEDS: insulin glargine (Lantus) pen - multi-dose SQ SCH (20:45)
[2018-02-05] MEDS ORDERED: LORazepam 2 mg/ml vial IV ONE (21:55)
[2018-02-05] MEDS: LORazepam 2 mg/ml vial IV PRN (22:19)
[2018-02-05] MEDS: FENTANYL-0.9 % NACL/PF 100 ML IV PRN (22:51)
[2018-02-06] VITALS (24 sets, daily range): BP systolic 119–182; BP diastolic 76–98
[2018-02-06] MEDS: ipratropium/albuterol 3ml nebule NEB SCH ×6 (00:13→23:00)
[2018-02-06] MEDS: piperacillin/tazo 3.375gm/50ml 50 ML IV SCH ×3 (00:45→16:53)
[2018-02-06] MEDS: sodium chloride 0.45% 1,000 ML IV SCH ×3 (00:52→14:38)
[2018-02-06] MEDS: metoprolol tartrate 1mg/ml inj IV PRN (02:52)
[2018-02-06] MEDS: amiodarone/D5 360MG/200ML BAG 200 ML IV SCH ×5 (03:01→21:45)
[2018-02-06] MEDS: insulin regular, human vial - multi-dose SQ SCH ×4 (03:19→19:59)
[2018-02-06 03:30] LABS: BASOPHILS % (AUTO) 0 % (0-1); EOSINOPHILS # (AUTO) 0.1 X10'3 (0-0.9); EOSINOPHILS % (AUTO) 0.9 % (0-6); HEMOGLOBIN 10.7 g/dl (14.0-17.9); LYMPHOCYTES # (AUTO) 0.3 X10'3 (1.1-4.8); LYMPHOCYTES % (AUTO) 2.4 % (21-51); MEAN CORPUSCULAR HEMOGLOBIN 33.4 PG (27.0-31.0); MEAN CORPUSCULAR HGB CONC 33.5 % (33.0-36.5); MEAN CORPUSCULAR VOLUME 99.8 FL (78-98); MEAN PLATELET VOLUME 10.6 FL (7.4-10.4); MONOCYTES # (AUTO) 0.4 X10'3 (0-0.9); MONOCYTES % (AUTO) 3.8 % (2-12); NEUTROPHILS # (AUTO) 9.9 X10'3 (1.8-7.7); NEUTROPHILS % (AUTO) 92.9 % (42-75); PLATELET COUNT 121 X10'3 (140-440); WHITE BLOOD COUNT 10.7 X10'3 (4.5-11.0)
[2018-02-06 03:41] LABS: ABG BASE EXCESS 2.5 mmol/L (-2.0-3.0); ABG HCO3 27.1 mmol/L (22.0-26.0); ABG OXYGEN SATURATION 93.4 % (95-98); ABG PH (T) 7.404 (7.350-7.450); ABG PO2 (T) 75.6 mmHg (83-108); FCOHb 0.3 % (0.5-1.5); FMetHb 0.2 % (0.3-1.12); FO2Hb 92.9 % (94-100); MINUTE VOLUME 11 L/min; PATIENT TEMPERATURE 38.4; PEEP 5 cm H2O; RESPIRATORY RATE 20 b/min; RESPIRATORY RATE (OBSERVED) 25 b/min; TOTAL HEMOGLOBIN 11.4 G/dl (14.0-18.0)
[2018-02-06 04:04] LABS: ALANINE AMINOTRANSFERASE 60 U/L (12-78); ALBUMIN 2.8 G/DL (3.4-5.0); ALKALINE PHOSPHATASE 37 IU/L (46-116); ANION GAP 8 (8-16); ASPARTATE AMINO TRANSFERASE 48 U/L (10-37); BILIRUBIN,TOTAL 0.7 MG/DL (0.1-1.0); BLOOD UREA NITROGEN 31 MG/DL (7-18); BUN/CREATININE RATIO 22.6 (5.4-32.0); CALCIUM 7.4 MG/DL (8.5-10.1); CHLORIDE 111 MMOL/L (99-107); CREATININE 1.37 MG/DL (0.60-1.10); GLUCOSE 238 MG/DL (70-104); MAGNESIUM 1.6 MG/DL (1.5-2.4); POTASSIUM 3.4 MMOL/L (3.5-5.1); SODIUM 149 MMOL/L (135-145); TOTAL PROTEIN 5.6 G/DL (6.4-8.2); eGFR 52 ML/MIN
[2018-02-06] MEDS ORDERED: morphine 2 MG/ML inj. syringe IV PRN (04:40)
[2018-02-06] MEDS: potassium Cl 40MEQ/250ML bag 250 ML IV PRN (05:11)
[2018-02-06] MEDS: budesonide 0.5mg/2ml UD nebule IH SCH ×2 (07:48→19:40)
[2018-02-06] MEDS: albuterol 2.5 MG/3 ML nebule NEB SCH ×4 (07:48→19:44)
[2018-02-06] MEDS: K, MAG and/or Phos replacement - Verify level? MC SCH (08:00)
[2018-02-06] MEDS: pantoprazole 40mg Tablet.DR PO SCH (08:00)
[2018-02-06] MEDS: potassium chloride 10mEq ER tablet PO SCH (08:00)
[2018-02-06] MEDS ORDERED: metoprolol succinate 25mg (24-HOUR) SR. Tablet PO SCH (08:00)
[2018-02-06] MEDS: methylPREDNISolone sod succ 125mg/2ml vial IV SCH ×2 (08:14→20:00)
[2018-02-06] MEDS: famotidine/PF 10 mg/ml inj IV SCH ×2 (08:16→20:01)
[2018-02-06] MEDS: lactobacillus rhamnosus 10,000 MMU CELLS/CAPSULE PO SCH ×2 (08:18→20:07)
[2018-02-06] MEDS: nicotine 21mg patch - 24 hr TD SCH (08:19)
[2018-02-06] MEDS: gabapentin 300mg capsule PO SCH ×3 (08:19→20:06)
[2018-02-06] MEDS: cyanocobalamin 500mcg tablet PO SCH (08:19)
[2018-02-06] MEDS: HYDROchlorothiazide 12.5mg capsule PO SCH (08:20)
[2018-02-06] MEDS: docusate sod 100mg capsule PO SCH ×2 (08:20→20:00)
[2018-02-06] MEDS: folic acid inj. 2 MG, thiamine inj. 100 MG, MVI, adult No.4 with vit. K 10 ML in dextro... IV SCH ×4 (08:21)
[2018-02-06] MEDS: enoxaparin 80mg/0.8ml syringe SUBCUT SCH ×2 (08:22→20:10)
[2018-02-06] MEDS: atorvastatin 20mg tablet PO SCH (08:27)
[2018-02-06 08:56] LABS: LARGE PLATELETS FEW; PLATELET ESTIMATE DECREASED
[2018-02-06] MEDS: pantoprazole 40 MG vial IV SCH (09:12)
[2018-02-06] MEDS: metoprolol tartrate 50mg tablet PO SCH ×2 (10:57→20:06)
[2018-02-06] MEDS: dexmedetomidin/NS 400mcg/100ml 100 ML IV SCH ×2 (11:24→23:14)
[2018-02-06] MEDS: FENTANYL-0.9 % NACL/PF 100 ML IV PRN (12:13)
[2018-02-06 12:30] LABS: ABG BASE EXCESS 0.8 mmol/L (-2.0-3.0); ABG HCO3 24.7 mmol/L (22.0-26.0); ABG OXYGEN SATURATION 92.5 % (95-98); ABG PCO2 (T) 37.1 mmHg (35.0-48.0); ABG PH (T) 7.442 (7.350-7.450); ABG PO2 (T) 67.6 mmHg (83-108); FCOHb 0.3 % (0.5-1.5); FMetHb 0.3 % (0.3-1.12); FO2Hb 91.9 % (94-100); MINUTE VOLUME 12 L/min; PEEP 5 cm H2O; RESPIRATORY RATE 14 b/min; RESPIRATORY RATE (OBSERVED) 14 b/min; TIDAL VOLUME 500 mL; TOTAL HEMOGLOBIN 11.6 G/dl (14.0-18.0)
[2018-02-06] MEDS: insulin glargine (Lantus) pen - multi-dose SQ SCH (19:58)
[2018-02-06] MEDS: amLODIPine 2.5mg tablet PO SCH (20:06)
[2018-02-07] VITALS (21 sets, daily range): BP systolic 133–180; BP diastolic 89–116
[2018-02-07] MEDS: piperacillin/tazo 3.375gm/50ml 50 ML IV SCH ×3 (00:33→16:10)
[2018-02-07] MEDS: sodium chloride 0.45% 1,000 ML IV SCH ×2 (01:55→16:10)
[2018-02-07] MEDS: insulin regular, human vial - multi-dose SQ SCH ×3 (02:31→20:37)
[2018-02-07 02:47] LABS: BASOPHILS % (AUTO) 0 % (0-1); EOSINOPHILS # (AUTO) 0.2 X10'3 (0-0.9); EOSINOPHILS % (AUTO) 1.6 % (0-6); HEMATOCRIT 32.2 % (42.0-52.0); HEMOGLOBIN 10.9 g/dl (14.0-17.9); LYMPHOCYTES # (AUTO) 0.3 X10'3 (1.1-4.8); LYMPHOCYTES % (AUTO) 3.3 % (21-51); MEAN CORPUSCULAR HEMOGLOBIN 33.7 PG (27.0-31.0); MEAN CORPUSCULAR HGB CONC 33.7 % (33.0-36.5); MEAN CORPUSCULAR VOLUME 99.8 FL (78-98); MEAN PLATELET VOLUME 11.3 FL (7.4-10.4); MONOCYTES # (AUTO) 0.5 X10'3 (0-0.9); MONOCYTES % (AUTO) 4.7 % (2-12); NEUTROPHILS # (AUTO) 8.8 X10'3 (1.8-7.7); NEUTROPHILS % (AUTO) 90.4 % (42-75); PLATELET COUNT 127 X10'3 (140-440); RED BLOOD COUNT 3.22 X10'6 (4.70-6.10); RED CELL DISTRIBUTION WIDTH 14.9 % (11.5-14.5); WHITE BLOOD COUNT 9.8 X10'3 (4.5-11.0)
[2018-02-07 03:02] LABS: ALANINE AMINOTRANSFERASE 57 U/L (12-78); ALBUMIN 2.5 G/DL (3.4-5.0); ALBUMIN/GLOBULIN RATIO 0.9 (1.1-1.5); ALKALINE PHOSPHATASE 36 IU/L (46-116); ANION GAP 4 (8-16); ASPARTATE AMINO TRANSFERASE 36 U/L (10-37); BILIRUBIN,TOTAL 0.5 MG/DL (0.1-1.0); BLOOD UREA NITROGEN 31 MG/DL (7-18); BUN/CREATININE RATIO 28.2 (5.4-32.0); CALCIUM 7.2 MG/DL (8.5-10.1); CHLORIDE 109 MMOL/L (99-107); GLUCOSE 198 MG/DL (70-104); MAGNESIUM 1.6 MG/DL (1.5-2.4); POTASSIUM 3.6 MMOL/L (3.5-5.1); SODIUM 145 MMOL/L (135-145); TOTAL CARBON DIOXIDE 31.7 MMOL/L (24-32); TOTAL PROTEIN 5.4 G/DL (6.4-8.2); eGFR 67 ML/MIN
[2018-02-07 04:21] LABS: ABG HCO3 26.2 mmol/L (22.0-26.0); ABG OXYGEN SATURATION 94.1 % (95-98); ABG PCO2 (T) 41.3 mmHg (35.0-48.0); ABG PH (T) 7.424 (7.350-7.450); ABG PO2 (T) 79.8 mmHg (83-108); ALLEN'S TEST Positive; FCOHb 0.3 % (0.5-1.5); FMetHb 0.2 % (0.3-1.12); FO2Hb 93.6 % (94-100); PATIENT TEMPERATURE 38.1; PEEP 5 cm H2O; RESPIRATORY RATE 14 b/min; TIDAL VOLUME 500 mL
[2018-02-07 04:35] LABS: LARGE PLATELETS FEW; PLATELET ESTIMATE DECREASED
[2018-02-07] MEDS: amiodarone/D5 360MG/200ML BAG 200 ML IV SCH ×2 (07:29→20:38)
[2018-02-07] MEDS: folic acid inj. 2 MG, thiamine inj. 100 MG, MVI, adult No.4 with vit. K 10 ML in dextro... IV SCH ×4 (07:50)
[2018-02-07] MEDS: dexmedetomidin/NS 400mcg/100ml 100 ML IV SCH ×2 (07:51→17:01)
[2018-02-07] MEDS: enoxaparin 80mg/0.8ml syringe SUBCUT SCH ×2 (07:54→19:32)
[2018-02-07] MEDS: pantoprazole 40 MG vial IV SCH (07:55)
[2018-02-07] MEDS: HYDROchlorothiazide 12.5mg capsule PO SCH (07:55)
[2018-02-07] MEDS: docusate sod 100mg capsule PO SCH ×2 (07:55→19:34)
[2018-02-07] MEDS: lactobacillus rhamnosus 10,000 MMU CELLS/CAPSULE PO SCH ×2 (07:55→19:33)
[2018-02-07] MEDS: budesonide 0.5mg/2ml UD nebule IH SCH ×2 (07:55→18:55)
[2018-02-07] MEDS: gabapentin 300mg capsule PO SCH ×3 (07:55→19:33)
[2018-02-07] MEDS: potassium chloride 10mEq ER tablet PO SCH (07:55)
[2018-02-07] MEDS: atorvastatin 20mg tablet PO SCH (07:55)
[2018-02-07] MEDS: metoprolol tartrate 50mg tablet PO SCH ×2 (07:55→19:33)
[2018-02-07] MEDS: cyanocobalamin 500mcg tablet PO SCH (07:55)
[2018-02-07] MEDS: albuterol 2.5 MG/3 ML nebule NEB SCH ×4 (07:55→18:55)
[2018-02-07] MEDS: K, MAG and/or Phos replacement - Verify level? MC SCH (07:56)
[2018-02-07] MEDS: methylPREDNISolone sod succ 125mg/2ml vial IV SCH ×2 (07:56→19:33)
[2018-02-07] MEDS: famotidine/PF 10 mg/ml inj IV SCH ×2 (07:59→19:33)
[2018-02-07] MEDS: FENTANYL-0.9 % NACL/PF 100 ML IV PRN (14:02)
[2018-02-07] MEDS: amLODIPine 2.5mg tablet PO SCH (19:33)
[2018-02-07] MEDS: insulin glargine (Lantus) pen - multi-dose SQ SCH (20:38)
[2018-02-08] VITALS (20 sets, daily range): BP systolic 136–177; BP diastolic 82–109
[2018-02-08] MEDS: piperacillin/tazo 3.375gm/50ml 50 ML IV SCH ×3 (00:30→15:19)
[2018-02-08] MEDS: dexmedetomidin/NS 400mcg/100ml 100 ML IV SCH (01:08)
[2018-02-08] MEDS: sodium chloride 0.45% 1,000 ML IV SCH (01:09)
[2018-02-08] MEDS: insulin regular, human vial - multi-dose SQ SCH ×4 (02:06→20:30)
[2018-02-08 02:19] LABS: BASOPHILS % (AUTO) 0 % (0-1); EOSINOPHILS # (AUTO) 0.2 X10'3 (0-0.9); EOSINOPHILS % (AUTO) 1.3 % (0-6); HEMATOCRIT 33.2 % (42.0-52.0); HEMOGLOBIN 11.1 g/dl (14.0-17.9); LYMPHOCYTES # (AUTO) 0.3 X10'3 (1.1-4.8); LYMPHOCYTES % (AUTO) 2.5 % (21-51); MEAN CORPUSCULAR HEMOGLOBIN 33.4 PG (27.0-31.0); MEAN CORPUSCULAR HGB CONC 33.5 % (33.0-36.5); MEAN CORPUSCULAR VOLUME 99.7 FL (78-98); MEAN PLATELET VOLUME 10.9 FL (7.4-10.4); MONOCYTES # (AUTO) 0.4 X10'3 (0-0.9); MONOCYTES % (AUTO) 3.2 % (2-12); NEUTROPHILS # (AUTO) 11.4 X10'3 (1.8-7.7); PLATELET COUNT 128 X10'3 (140-440); RED BLOOD COUNT 3.33 X10'6 (4.70-6.10); RED CELL DISTRIBUTION WIDTH 14.8 % (11.5-14.5); WHITE BLOOD COUNT 12.2 X10'3 (4.5-11.0)
[2018-02-08 02:37] LABS: ALANINE AMINOTRANSFERASE 64 U/L (12-78); ALBUMIN 2.4 G/DL (3.4-5.0); ALBUMIN/GLOBULIN RATIO 0.8 (1.1-1.5); ALKALINE PHOSPHATASE 30 IU/L (46-116); ANION GAP 4 (8-16); ASPARTATE AMINO TRANSFERASE 30 U/L (10-37); BILIRUBIN,TOTAL 0.5 MG/DL (0.1-1.0); BLOOD UREA NITROGEN 31 MG/DL (7-18); BUN/CREATININE RATIO 29.5 (5.4-32.0); CALCIUM 7.3 MG/DL (8.5-10.1); CHLORIDE 108 MMOL/L (99-107); CREATININE 1.05 MG/DL (0.60-1.10); GLUCOSE 222 MG/DL (70-104); MAGNESIUM 1.8 MG/DL (1.5-2.4); POTASSIUM 3.6 MMOL/L (3.5-5.1); PREALBUMIN 27.6 MG/DL (19-36); SODIUM 143 MMOL/L (135-145); TOTAL CARBON DIOXIDE 30.7 MMOL/L (24-32); TOTAL PROTEIN 5.3 G/DL (6.4-8.2); eGFR 70 ML/MIN
[2018-02-08 04:51] LABS: ABG BASE EXCESS 0.9 mmol/L (-2.0-3.0); ABG HCO3 24.4 mmol/L (22.0-26.0); ABG OXYGEN SATURATION 91.8 % (95-98); ABG PCO2 (T) 35.3 mmHg (35.0-48.0); ABG PH (T) 7.457 (7.350-7.450); ABG PO2 (T) 64.7 mmHg (83-108); ALLEN'S TEST Positive; FCOHb 0.3 % (0.5-1.5); FMetHb 0.2 % (0.3-1.12); FO2Hb 91.3 % (94-100); PEEP 5 cm H2O; RESPIRATORY RATE 14 b/min; TIDAL VOLUME 500 mL; TOTAL HEMOGLOBIN 12.5 G/dl (14.0-18.0)
[2018-02-08] MEDS: ipratropium/albuterol 3ml nebule NEB SCH ×5 (07:00→23:00)
[2018-02-08] MEDS: albuterol 2.5 MG/3 ML nebule NEB SCH ×4 (07:40→19:13)
[2018-02-08] MEDS: budesonide 0.5mg/2ml UD nebule IH SCH ×2 (07:40→19:13)
[2018-02-08] MEDS: amiodarone/D5 360MG/200ML BAG 200 ML IV SCH ×5 (07:45→19:53)
[2018-02-08] MEDS: K, MAG and/or Phos replacement - Verify level? MC SCH (08:00)
[2018-02-08] MEDS: famotidine/PF 10 mg/ml inj IV SCH ×2 (08:00→20:21)
[2018-02-08] MEDS: docusate sod 100mg capsule PO SCH ×2 (08:00→20:00)
[2018-02-08] MEDS: methylnaltrexone br 12mg/0.6ml inj***SubQ only SQ SCH (08:00)
[2018-02-08] MEDS: pantoprazole 40 MG vial IV SCH (08:05)
[2018-02-08] MEDS: methylPREDNISolone sod succ 125mg/2ml vial IV SCH (08:05)
[2018-02-08] MEDS: folic acid inj. 2 MG, thiamine inj. 100 MG, MVI, adult No.4 with vit. K 10 ML in dextro... IV SCH ×4 (08:06)
[2018-02-08] MEDS: enoxaparin 80mg/0.8ml syringe SUBCUT SCH ×2 (08:06→20:20)
[2018-02-08] MEDS: HYDROchlorothiazide 12.5mg capsule PO SCH (08:07)
[2018-02-08] MEDS: lactobacillus rhamnosus 10,000 MMU CELLS/CAPSULE PO SCH ×2 (08:07→20:20)
[2018-02-08] MEDS: atorvastatin 20mg tablet PO SCH (08:07)
[2018-02-08] MEDS: potassium chloride 10mEq ER tablet PO SCH (08:07)
[2018-02-08] MEDS: gabapentin 300mg capsule PO SCH ×3 (08:07→20:20)
[2018-02-08] MEDS: cyanocobalamin 500mcg tablet PO SCH (08:07)
[2018-02-08] MEDS: metoprolol tartrate 50mg tablet PO SCH ×2 (08:07→20:20)
[2018-02-08 09:19] LABS: C DIFF ANTIGEN NEGATIVE (NEGATIVE); C DIFF SPECIMEN=DIARRHEA? ACCEPTABLE; C DIFFICILE TOXINS A&B NEGATIVE (Neg)
[2018-02-08 09:40] LABS: ABG BASE EXCESS 1.8 mmol/L (-2.0-3.0); ABG HCO3 25.2 mmol/L (22.0-26.0); ABG OXYGEN SATURATION 92.2 % (95-98); ABG PCO2 (T) 37.3 mmHg (35.0-48.0); ABG PH (T) 7.452 (7.350-7.450); ABG PO2 (T) 66.6 mmHg (83-108); ALLEN'S TEST Positive; FCOHb 0.3 % (0.5-1.5); FMetHb 0.3 % (0.3-1.12); FO2Hb 91.6 % (94-100); MINUTE VOLUME 13 L/min; PEEP 5 cm H2O; RESPIRATORY RATE (OBSERVED) 20 b/min; TOTAL HEMOGLOBIN 12.4 G/dl (14.0-18.0)
[2018-02-08 11:13] LABS: TOTAL CELLS COUNTED 100
[2018-02-08 11:15] LABS: PLATELET ESTIMATE DECREASED
[2018-02-08] MEDS: amLODIPine 2.5mg tablet PO SCH (20:20)
[2018-02-08] MEDS: methylPREDNISolone sod succ/PF 40mg inj. IV SCH (20:21)
[2018-02-08] MEDS: insulin glargine (Lantus) pen - multi-dose SQ SCH (20:31)
[2018-02-09] VITALS (24 sets, daily range): BP systolic 143–169; BP diastolic 86–110
[2018-02-09] MEDS: piperacillin/tazo 3.375gm/50ml 50 ML IV SCH ×4 (00:05→23:42)
[2018-02-09] MEDS: amiodarone/D5 360MG/200ML BAG 200 ML IV SCH ×4 (01:57→19:37)
[2018-02-09 02:22] LABS: BASOPHILS % (AUTO) 0.2 % (0-1); EOSINOPHILS # (AUTO) 0.3 X10'3 (0-0.9); EOSINOPHILS % (AUTO) 1.3 % (0-6); HEMATOCRIT 36.2 % (42.0-52.0); HEMOGLOBIN 12.2 g/dl (14.0-17.9); LYMPHOCYTES # (AUTO) 0.5 X10'3 (1.1-4.8); LYMPHOCYTES % (AUTO) 2.6 % (21-51); MEAN CORPUSCULAR HEMOGLOBIN 33.4 PG (27.0-31.0); MEAN CORPUSCULAR HGB CONC 33.6 % (33.0-36.5); MEAN CORPUSCULAR VOLUME 99.4 FL (78-98); MEAN PLATELET VOLUME 11.1 FL (7.4-10.4); MONOCYTES # (AUTO) 0.9 X10'3 (0-0.9); MONOCYTES % (AUTO) 4.8 % (2-12); NEUTROPHILS # (AUTO) 17.7 X10'3 (1.8-7.7); NEUTROPHILS % (AUTO) 91.1 % (42-75); RED BLOOD COUNT 3.64 X10'6 (4.70-6.10); RED CELL DISTRIBUTION WIDTH 14.4 % (11.5-14.5); WHITE BLOOD COUNT 19.4 X10'3 (4.5-11.0)
[2018-02-09] MEDS: insulin regular, human vial - multi-dose SQ SCH ×3 (02:34→14:24)
[2018-02-09 02:36] LABS: ALANINE AMINOTRANSFERASE 76 U/L (12-78); ALBUMIN 2.4 G/DL (3.4-5.0); ALBUMIN/GLOBULIN RATIO 0.8 (1.1-1.5); ALKALINE PHOSPHATASE 29 IU/L (46-116); ANION GAP 7 (8-16); ASPARTATE AMINO TRANSFERASE 46 U/L (10-37); BILIRUBIN,TOTAL 0.7 MG/DL (0.1-1.0); BLOOD UREA NITROGEN 32 MG/DL (7-18); BUN/CREATININE RATIO 32.7 (5.4-32.0); CALCIUM 7.8 MG/DL (8.5-10.1); CHLORIDE 107 MMOL/L (99-107); CREATININE 0.98 MG/DL (0.60-1.10); GLUCOSE 151 MG/DL (70-104); MAGNESIUM 1.7 MG/DL (1.5-2.4); SODIUM 147 MMOL/L (135-145); TOTAL CARBON DIOXIDE 32.7 MMOL/L (24-32); TOTAL PROTEIN 5.4 G/DL (6.4-8.2); eGFR 76 ML/MIN
[2018-02-09 02:39] LABS: POTASSIUM 2.8 MMOL/L (3.5-5.1)
[2018-02-09 02:56] LABS: PLATELET COUNT 159 X10'3 (140-440)
[2018-02-09] MEDS: potassium Cl 40MEQ/250ML bag 250 ML IV PRN ×3 (02:58→16:34)
[2018-02-09] MEDS: albuterol 2.5 MG/3 ML nebule NEB SCH ×4 (07:03→19:29)
[2018-02-09] MEDS: budesonide 0.5mg/2ml UD nebule IH SCH ×2 (07:03→19:29)
[2018-02-09] MEDS: atorvastatin 20mg tablet PO SCH (07:35)
[2018-02-09] MEDS: lactobacillus rhamnosus 10,000 MMU CELLS/CAPSULE PO SCH ×2 (07:35→19:38)
[2018-02-09] MEDS: gabapentin 300mg capsule PO SCH ×3 (07:35→21:00)
[2018-02-09] MEDS: metoprolol tartrate 50mg tablet PO SCH ×2 (07:35→19:38)
[2018-02-09] MEDS: cyanocobalamin 500mcg tablet PO SCH (07:35)
[2018-02-09] MEDS: HYDROchlorothiazide 12.5mg capsule PO SCH (07:35)
[2018-02-09] MEDS: potassium chloride 10mEq ER tablet PO SCH (07:35)
[2018-02-09] MEDS: enoxaparin 80mg/0.8ml syringe SUBCUT SCH ×2 (07:36→19:38)
[2018-02-09] MEDS: famotidine/PF 10 mg/ml inj IV SCH ×2 (07:36→19:38)
[2018-02-09] MEDS: methylPREDNISolone sod succ/PF 40mg inj. IV SCH (07:36)
[2018-02-09] MEDS: docusate sod 100mg capsule PO SCH ×2 (08:00→19:38)
[2018-02-09] MEDS: folic acid inj. 2 MG, thiamine inj. 100 MG, MVI, adult No.4 with vit. K 10 ML in dextro... IV SCH ×4 (08:00)
[2018-02-09] MEDS ORDERED: furosemide 40mg/4ml inj IV ONE (08:40)
[2018-02-09] MEDS: K, MAG and/or Phos replacement - Verify level? MC SCH (08:41)
[2018-02-09] MEDS: dextrose 5%-water 1,000 ML IV SCH ×3 (08:47→22:12)
[2018-02-09] MEDS: hydrALAZINE 25 MG tablet PO SCH ×2 (15:59→23:34)
[2018-02-09] MEDS: insulin glargine (Lantus) pen - multi-dose SQ SCH (21:00)
[2018-02-09] MEDS: amLODIPine 2.5mg tablet PO SCH (21:00)
[2018-02-09] MEDS: LORazepam 2 mg/ml vial IV PRN (22:49)
[2018-02-10] VITALS (21 sets, daily range): BP systolic 105–195; BP diastolic 76–118
[2018-02-10 02:12] LABS: BASOPHILS % (AUTO) 0 % (0-1); EOSINOPHILS # (AUTO) 0.3 X10'3 (0-0.9); EOSINOPHILS % (AUTO) 1.7 % (0-6); HEMATOCRIT 34.5 % (42.0-52.0); HEMOGLOBIN 11.4 g/dl (14.0-17.9); LYMPHOCYTES # (AUTO) 0.9 X10'3 (1.1-4.8); LYMPHOCYTES % (AUTO) 4.9 % (21-51); MEAN CORPUSCULAR HEMOGLOBIN 33.3 PG (27.0-31.0); MEAN CORPUSCULAR HGB CONC 33.2 % (33.0-36.5); MEAN CORPUSCULAR VOLUME 100.2 FL (78-98); MEAN PLATELET VOLUME 11.3 FL (7.4-10.4); MONOCYTES # (AUTO) 1.1 X10'3 (0-0.9); MONOCYTES % (AUTO) 6.3 % (2-12); NEUTROPHILS # (AUTO) 15.6 X10'3 (1.8-7.7); NEUTROPHILS % (AUTO) 87.1 % (42-75); RED BLOOD COUNT 3.44 X10'6 (4.70-6.10); WHITE BLOOD COUNT 17.9 X10'3 (4.5-11.0)
[2018-02-10] MEDS: amiodarone/D5 360MG/200ML BAG 200 ML IV SCH ×2 (02:13→08:14)
[2018-02-10 02:17] LABS: ALANINE AMINOTRANSFERASE 88 U/L (12-78); ALBUMIN 2.4 G/DL (3.4-5.0); ALBUMIN/GLOBULIN RATIO 0.9 (1.1-1.5); ALKALINE PHOSPHATASE 35 IU/L (46-116); ANION GAP 6 (8-16); ASPARTATE AMINO TRANSFERASE 43 U/L (10-37); BILIRUBIN,TOTAL 0.6 MG/DL (0.1-1.0); BLOOD UREA NITROGEN 31 MG/DL (7-18); BUN/CREATININE RATIO 30.7 (5.4-32.0); CALCIUM 8.1 MG/DL (8.5-10.1); CHLORIDE 108 MMOL/L (99-107); CREATININE 1.01 MG/DL (0.60-1.10); GLUCOSE 129 MG/DL (70-104); SODIUM 146 MMOL/L (135-145); TOTAL CARBON DIOXIDE 32.3 MMOL/L (24-32); TOTAL PROTEIN 5.1 G/DL (6.4-8.2); eGFR 74 ML/MIN
[2018-02-10 02:22] LABS: POTASSIUM 2.8 MMOL/L (3.5-5.1)
[2018-02-10] MEDS: potassium Cl 40MEQ/250ML bag 250 ML IV PRN ×3 (02:47→10:23)
[2018-02-10] MEDS: metoprolol tartrate 1mg/ml inj IV PRN (03:14)
[2018-02-10 03:16] LABS: PLATELET COUNT 146 X10'3 (140-440)
[2018-02-10] MEDS: methylnaltrexone br 12mg/0.6ml inj***SubQ only SQ SCH (06:31)
[2018-02-10] MEDS: piperacillin/tazo 3.375gm/50ml 50 ML IV SCH ×2 (07:05→16:00)
[2018-02-10] MEDS: niCARDipine/sod cl 20mg/200ml 200 ML IV SCH ×5 (07:07→22:20)
[2018-02-10] MEDS: famotidine/PF 10 mg/ml inj IV SCH ×2 (07:09→20:10)
[2018-02-10] MEDS: enoxaparin 80mg/0.8ml syringe SUBCUT SCH (07:10)
[2018-02-10] MEDS: HYDROchlorothiazide 12.5mg capsule PO SCH (07:11)
[2018-02-10] MEDS: hydrALAZINE 25 MG tablet PO SCH ×2 (07:11→16:16)
[2018-02-10] MEDS: cyanocobalamin 500mcg tablet PO SCH (07:11)
[2018-02-10] MEDS: metoprolol tartrate 50mg tablet PO SCH ×2 (07:11→20:10)
[2018-02-10] MEDS: lactobacillus rhamnosus 10,000 MMU CELLS/CAPSULE PO SCH ×2 (07:11→20:10)
[2018-02-10] MEDS: potassium chloride 10mEq ER tablet PO SCH (07:12)
[2018-02-10] MEDS: atorvastatin 20mg tablet PO SCH (07:12)
[2018-02-10] MEDS: gabapentin 300mg capsule PO SCH ×3 (07:12→20:10)
[2018-02-10] MEDS: docusate sod 100mg capsule PO SCH ×2 (07:12→20:00)
[2018-02-10] MEDS: budesonide 0.5mg/2ml UD nebule IH SCH ×2 (07:43→20:19)
[2018-02-10] MEDS: albuterol 2.5 MG/3 ML nebule NEB SCH ×4 (07:44→20:19)
[2018-02-10] MEDS: K, MAG and/or Phos replacement - Verify level? MC SCH (08:00)
[2018-02-10] MEDS: dextrose 5%-water 1,000 ML IV SCH (14:40)
[2018-02-10] MEDS ORDERED: amiodarone 200mg tablet PO SCH (20:00)
[2018-02-10] MEDS: amLODIPine 2.5mg tablet PO SCH (20:10)
[2018-02-10] MEDS: insulin glargine (Lantus) pen - multi-dose SQ SCH (20:12)
[2018-02-10] MEDS ORDERED: rivaroxaban 20mg tablet PO SCH (21:00)
== END 2018-02-10 22:45 | DRG 870 ==
LOC: ER 17:13 → ED HOLD 01-31 01:08 → PCU 3S 01-31 02:38 → ICU 2S 02-03 13:25
PROVIDERS: ADMIT Family Medicine
PROC: 009U3ZX Drainage of Spinal Canal, Percutaneous Approach, Diagnostic (ICD-10-PCS; 2018-01-30)
PROC: B32T1ZZ Computerized Tomography (CT Scan) of Left Pulmonary Artery using Low Osmolar Contrast (ICD-10-PCS; 2018-01-31)
PROC: B3201ZZ Computerized Tomography (CT Scan) of Thoracic Aorta using Low Osmolar Contrast (ICD-10-PCS; 2018-01-31)
PROC: B32S1ZZ Computerized Tomography (CT Scan) of Right Pulmonary Artery using Low Osmolar Contrast (ICD-10-PCS; 2018-01-31)
PROC: 5A1955Z Respiratory Ventilation, Greater than 96 Consecutive Hours (ICD-10-PCS; principal; 2018-02-03)
PROC: 0BH17EZ Insertion of Endotracheal Airway into Trachea, Via Natural or Artificial Opening (ICD-10-PCS; 2018-02-03)
PROC: 02HV33Z Insertion of Infusion Device into Superior Vena Cava, Percutaneous Approach (ICD-10-PCS; 2018-02-03)
PROC: B548ZZA Ultrasonography of Superior Vena Cava, Guidance (ICD-10-PCS; 2018-02-03)
PROC: 03HC33Z Insertion of Infusion Device into Left Radial Artery, Percutaneous Approach (ICD-10-PCS; 2018-02-03)
PROC: B34JZZZ Ultrasonography of Left Upper Extremity Arteries (ICD-10-PCS; 2018-02-03)
DX: A41.9 Sepsis, unspecified organism (principal); G93.40 Encephalopathy, unspecified; J96.01 Acute respiratory failure with hypoxia; E87.0 Hyperosmolality and hypernatremia; I48.92 Unspecified atrial flutter; J44.1 Chronic obstructive pulmonary disease with (acute) exacerbation; I50.20 Unspecified systolic (congestive) heart failure; N17.9 Acute kidney failure, unspecified; F10.239 Alcohol dependence with withdrawal, unspecified; E78.5 Hyperlipidemia, unspecified; E87.6 Hypokalemia; F17.210 Nicotine dependence, cigarettes, uncomplicated; H91.90 Unspecified hearing loss, unspecified ear; I48.91 Unspecified atrial fibrillation; E11.649 Type 2 diabetes mellitus with hypoglycemia without coma; I11.0 Hypertensive heart disease with heart failure; Y90.9 Presence of alcohol in blood, level not specified; Z79.01 Long term (current) use of anticoagulants
CPT/HCPCS: 36415; 36600; 62270; 70450; 71045; 71275; 73502; 74018; 74176; 80048; 80053; 80061; 80202; 80305; 81001; 82140; 82150; 82803; 82945; 82948; 83036; 83605; 83690; 83735; 83880; 84100; 84132; 84134; 84145; 84157; 84295; 84484; 85018; 85025; 85610; 85730; 86788; 86789; 87015; 87040; 87070; 87088; 87210; 87324; 87449; 87529; 89051; 92616; 93005; 93306; 94002; 94003; 94640; 94660; 94760; 96365; 96366; 96367; 96368; 97162; 97530; 99285; A6212; A6213; A6250; A6449; A7015; C1751; C1758; C9113; J0131; J0133; J0282; J0696; J1630; J1644; J1650; J1815; J1940; J1956; J2060; J2250; J2543; J2920; J2930; J3370; J3411; J3420; J3480; J3490; J7030; J7060; J7070; J7626; P9047; Q9967